=== PATIENT | female | born 2000 | race Caucasian/White ===

== ENCOUNTER 2021-06-13 17:34 | Emergency (ER) | payer OTHER ==
[2021-06-13 18:08] LABS: Urine Blood Negative (Negative); Urine Glucose Negative (Negative); Urine Protein Negative (Negative); Urine Specific Gravity 1.025 (1.005-1.030); Urine pH 6.5 (5.0-7.0)
[2021-06-13 19:35] LABS: Urine Specific Gravity/Preg 1.025 (1.005-1.030)
[2021-06-13] MEDS ORDERED: NA CHLORIDE 0.9% 1,000 ML ONE (19:52)
[2021-06-13 20:06] LABS: ALT/SGPT 22 U/L (12-78); AST/SGOT 12 U/L (15-37); Absolute Lymphocytes (CBC) 2.2 K/uL (0.7-4.9); Alkaline Phosphatase 69 U/L (45-117); BUN Blood Urea Nitrogen 8 mg/dL (7-18); Basophils % 0.2 % (0-1.3); Bicarbonate 26 mmol/L (21-32); Bilirubin Direct 0.1 mg/dL (0-0.2); Bilirubin Total 0.4 mg/dL (0.2-1.0); Glucose Level 81 mg/dL (74-106); Lipase 163 U/L (73-393); Lymphocytes % 29.8 % (15.3-44.8); MPV 9.4 fL (7.6-11.3); Potassium 3.6 mmol/L (3.5-5.1); Protein, Total 7.5 g/dL (6.4-8.2); RBC Red Blood Cell Count 5.13 M/uL (3.86-4.86); Sodium Level 140 mmol/L (136-145)
--- NOTE | 2021-06-13 20:42 | RAD REPORT ---
EXAM DESCRIPTION: US - OB Limited - 06/13/2021 8:30 pm CLINICAL HISTORY: with abdominal pain COMPARISON: None FINDINGS: Limited examination was performed to assess for viability, placenta and amniotic flu id Single live intrauterine in cephalic presentation. Placenta posterior fundal. No subchorionic/retroplacental bleed. Cardiac activity 164 beats per minute. Amniotic fluid within normal limits. Cervix 5 centimeters. The right and left adnexum unremarkable. Right ovary normal in size and echotexture. Left ovary not seen secondary to overlying bowel gas IMPRESSION: Single live intrauterine in cephalic presentation. Normal amniotic fluid. Based on the femur length the estimated gestational age 16 weeks 5 days KARELY 11/23/2021. If a freeman rvey is desired it should be performed in approximately 1-1/2 weeks
--- NOTE | 2021-06-13 20:43 | RAD REPORT ---
EXAM DESCRIPTION: US - Abdomen Exam Complete - 06/13/2021 8:30 pm CLINICAL HISTORY: Abdominal pain COMPARISON: none FINDINGS: The liver has a normal echotexture. A gallstone is not seen. The gallbladder wall is not thickened. The biliary tree is normal caliber. The pancreas is normal in size and echotexture The right kidney measures 11 centimeters with a normal echotexture. The left kidney measures 10 centimeters with a normal echotexture. The spleen measures 12.8 centimeters. Limited evaluation the distal abdominal aorta secondary to overlying bowel gas. Otherwise, The abdominal aorta and inferior vena cava appear unremarkable IMPRESSION: Borderline splenomegaly
--- NOTE | 2021-06-13 21:19 | EDPHYS ---
Physician Documentation [facility] Name: Homer Amin Age: 20 yrs Sex: Female : 2000 Arrival Date: 06/13/2021 Time: 17:36 Bed 11 Private MD: ED Physician Emerson Jacobson HPI: 06/13 20:21 This 20 yrs old Female presents to ER via Ambulatory with complaints of Abdominal Pain pkl - 17 wks preg. 20:21 The patient presents with abdominal pain right lower quadrant, in the left lower pkl quadrant. Onset: The symptoms/episode began/occurred 4 day(s) ago. The symptoms do not radiate. Associated signs and symptoms: Pertinent positives: nausea, dizziness. I&C TECH: 17:54 LMP 12/02/2020 vg1 Historical: - Allergies: 17:54 No Known Allergies; vg1 - Home Meds: 17:54 Vitamin Oral [Active]; vg1 - PMHx: 17:54 None; vg1 - PSHx: 17:54 section; vg1 - Immunization history:: Client reports having NOT received the Covid vaccine. - Social history:: Smoking status: Patient denies any tobacco usage or history of. ROS: 20:21 Eyes: Negative for injury, pain, redness, and discharge, ENT: Negative for injury, pkl pain, and discharge, Neck: Negative for injury, pain, and swelling, Cardiovascular: Negative for chest pain, palpitations, and edema, Respiratory: Negative for shortness of breath, cough, wheezing, and pleuritic chest pain. 20:21 Abdomen/GI: Positive for abdominal pain, nausea, of the right lower quadrant and left lower quadrant. 20:21 Back: Negative for acute changes. 20:21 : Negative for urinary symptoms. 20:21 MS/extremity: Negative for acute changes. 20:21 Skin: Negative for rash. 20:21 Neuro: Negative for altered mental status, loss of consciousness. Exam: 20:21 Head/Face: Normocephalic, atraumatic. Eyes: Pupils equal round and reactive to light, pkl extra-ocular motions intact. Lids and lashes normal. Conjunctiva and sclera are non-icteric and not injected. Cornea within normal limits. Periorbital areas with no swelling, redness, or edema. ENT: Nares patent. No nasal discharge, no septal abnormalities noted. Tympanic membranes are normal and external auditory canals are clear. Oropharynx with no redness, swelling, or masses, exudates, or evidence of obstruction, uvula midline. Mucous membranes moist. Neck: Trachea midline, no thyromegaly or masses palpated, and no cervical lymphadenopathy. Supple, full range of motion without nuchal rigidity, or vertebral point tenderness. No Meningismus. Chest/axilla: Normal chest wall appearance and motion. Nontender with no deformity. No lesions are appreciated. Cardiovascular: Regular rate and rhythm with a normal S1 and S2. No gallops, murmurs, or rubs. Normal PMI, no JVD. No pulse deficits. Respiratory: Lungs have equal breath sounds bilaterally, clear to auscultation and percussion. No rales, rhonchi or wheezes noted. No increased work of breathing, no retractions or nasal flaring. 20:21 Abdomen/GI: Bowel sounds: normal, Palpation: soft, mild abdominal tenderness, in the right lower quadrant and left lower quadrant. 20:21 Back: Exam negative for acute changes. 20:21 : Exam negative for acute changes. 20:21 Musculoskeletal/extremity: Exam is negative for acute changes. 20:21 Skin: Exam negative for rash. 20:21 Neuro: Orientation: is normal, Mentation: is normal, Cranial nerves: grossly normal, Motor: is normal. Vital Signs: 17:52 BP 113 / 84; Pulse 84; Resp 16; Temp 97.6; Pulse Ox 100% ; Weight 90.72 kg; Height 5 vg1 ft. 2 in. (157.48 cm); Pain 4/10; 21:16 BP 118 / 76; Pulse 81; Resp 18; Pulse Ox 100% ; ld1 17:52 Body Mass Index 36.58 (90.72 kg, 157.48 cm) vg1 MDM: 19:19 Patient medically screened. pkl 21:15 Data reviewed: vital signs, nurses notes, lab test result(s), radiologic studies, pkl ultrasound. ED course: Patient feeling better. Discussed lab and US results with patient. Advised to follow up with her I&C TECH in 1 to 2 days. Patient understood instructions. 06/13 18:08 Order name: Urine Dipstick-Ancillary; Complete Time: 19:27 EDMS 06/13 18:10 Order name: Urine --Ancillary (enter results); Complete Time: 20:29 bd 06/13 19:27 Order name: Basic Metabolic Panel; Complete Time: 20:29 pkl 06/13 19:27 Order name: CBC with Diff; Complete Time: 20:29 pkl 06/13 19:27 Order name: Hepatic Function; Complete Time: 20:29 pkl 06/13 19:27 Order name: Lipase; Complete Time: 20:29 pkl 06/13 19:27 Order name: IV Saline Lock; Complete Time: 20:07 pkl 06/13 19:27 Order name: Labs collected and sent; Complete Time: 20:07 pkl 06/13 19:30 Order name: US Abdomen Complete; Complete Time: 20:50 pkl 06/13 19:41 Order name: OB Limited; Complete Time: 20:50 EDMS 06/13 20:52 Order name: Heart Tones; Complete Time: 21:14 pkl Administered Medications: 20:15 Drug: NS 0.9% 1000 ml Route: IV; Rate: 125 ml/hr; Site: right antecubital; mr2 Disposition Summary: 06/13/21 21:19 Discharge Ordered Location: Home pkl Problem: new pkl Symptoms: have improved pkl Condition: Stable pkl Diagnosis - Abdominal pain. 2 nd Trimester pkl Followup: pkl - With: Private Physician - When: 1 - 2 days - Reason: Re-evaluation by your physician Forms: - Medication Reconciliation Form pkl - Thank You Letter pkl - Antibiotic Education pkl - Prescription Opioid Use pkl Signatures: Dispatcher [employer] EDEmerson Saenz MD MD pkl Jamia David RN RN vg1 Mick Singh RN RN mr2 Corrections: (The following items were deleted from the chart) 19:28 19:27 Urine Dipstick-Ancillary ordered. pkl pkl 19:41 19:30 Pelvis Complete+US.RAD.BRZ ordered. EDMS EDMS
--- NOTE | 2021-06-13 21:19 | ER ---
Nurse's Notes [facility] Name: Homer Amin Age: 20 yrs Sex: Female : 2000 Arrival Date: 06/13/2021 Time: 17:36 Bed 11 Private MD: Diagnosis: Abdominal pain. 2 nd Trimester Presentation: 06/13 17:52 Chief complaint: Patient states: RLQ sharp pain x4 days, states nausea and dizziness, vg1 pt is approximately 17 weeks . Pt states tenderness at site. Coronavirus screen: Vaccine status: Patient reports being unvaccinated. Ebola Screen: Patient negative for fever greater than or equal to 101.5 degrees Fahrenheit, and additional compatible Ebola Virus Disease symptoms. Initial Sepsis Screen: Does the patient meet any 2 criteria? No. Patient's initial sepsis screen is negative. Does the patient have a suspected source of infection? No. Patient's initial sepsis screen is negative. Risk Assessment: Do you want to hurt yourself or someone else? Patient reports no desire to harm self or others. Onset of symptoms was June 09, 2021. 17:52 Method Of Arrival: Ambulatory vg1 17:52 Acuity: LBACK 3 vg1 Triage Assessment: 17:54 General: Appears in no apparent distress. comfortable, Behavior is calm, cooperative. vg1 Pain: Complains of pain in right lower quadrant Pain currently is 4 out of 10 on a pain scale. GI: Abdomen is round Last BM was June 13, 2021. : Denies burning with urination, vaginal bleeding. MANAGER MACHINE: 17:54 LMP 12/02/2020 vg1 Historical: - Allergies: 17:54 No Known Allergies; vg1 - Home Meds: 17:54 Vitamin Oral [Active]; vg1 - PMHx: 17:54 None; vg1 - PSHx: 17:54 section; vg1 - Immunization history:: Client reports having NOT received the Covid vaccine. - Social history:: Smoking status: Patient denies any tobacco usage or history of. Vital Signs: 17:52 BP 113 / 84; Pulse 84; Resp 16; Temp 97.6; Pulse Ox 100% ; Weight 90.72 kg; Height 5 vg1 ft. 2 in. (157.48 cm); Pain 4/10; 21:16 BP 118 / 76; Pulse 81; Resp 18; Pulse Ox 100% ; ld1 17:52 Body Mass Index 36.58 (90.72 kg, 157.48 cm) vg1 ED Course: 17:36 Patient arrived in ED. am2 17:54 Triage completed. vg1 17:54 Arm band placed on. vg1 19:13 Gisselle Simmons, RN is Primary Nurse. jh5 19:19 Emerson Jacobson MD is Attending Physician. pkl 20:30 US Abdomen Complete In Process Unspecified. EDMS 20:30 OB Limited In Process Unspecified. EDMS Administered Medications: 20:15 Drug: NS 0.9% 1000 ml Route: IV; Rate: 125 ml/hr; Site: right antecubital; mr2 Outcome: 21:19 Discharge ordered by . pkl 21:47 Patient left the ED. 5 Signatures: Dispatcher [employer] EDMS Emerson Jacobson MD MD pkl Andreina Vidales am2 Jamia David RN RN vg1 Claudia Aguirre RN RN ld1 Mick Singh RN RN mr2 Gisselle Simmons, RN RN [facility]
[2021-06-13 21:52] VITALS: TEMP 97.6; O2SAT 100
[2021-06-13 21:53] VITALS: BP 118/76
== END 2021-06-13 21:47 | disposition home or self-care (01) ==
LOC: ER 17:34
DX: O26.892 Other specified pregnancy related conditions, second trimester (principal); Z3A.17 17 weeks gestation of pregnancy
CPT/HCPCS: 85025; 80048; 36415; 81025; 80076; 81003; 83690; 76700; 76815; 99283; J7030

== ENCOUNTER 2021-08-03 09:26 | Emergency (ER) | payer OTHER ==
[2021-08-03 09:48] LABS: Urine Blood Negative (Negative); Urine Glucose Negative (Negative); Urine Protein Negative (Negative); Urine pH 7.5 (5.0-7.0)
[2021-08-03] MEDS ORDERED: NA CHLORIDE 0.9% 1,000 ML ONE (10:34)
[2021-08-03 10:57] LABS: Absolute Lymphocytes (CBC) 0.4 K/uL (0.7-4.9); Hematocrit 39.8 % (36.0-45.0); Lymphocytes % 8.1 % (15.3-44.8); MPV 8.5 fL (7.6-11.3); RBC Red Blood Cell Count 4.89 M/uL (3.86-4.86)
[2021-08-03 11:41] LABS: BUN Blood Urea Nitrogen 4 mg/dL (7-18); Bicarbonate 20 mmol/L (21-32); Glucose Level 70 mg/dL (74-106); Sodium Level 135 mmol/L (136-145)
[2021-08-03 11:42] LABS: Potassium 3.9 mmol/L (3.5-5.1)
[2021-08-03 12:12] LABS: SARS-COV-2 RT PCR POSITIVE (NEGATIVE)
--- NOTE | 2021-08-03 12:24 | EDPHYS ---
Physician Documentation [facility] Name: Homer Amin Age: 21 yrs Sex: Female : 2000 Arrival Date: 08/03/2021 Time: 09:28 Bed 9 Private MD: ED Physician Pedro Babb HPI: 08/03 10:20 This 21 yrs old Female presents to ER via Ambulatory with complaints of Pain All Over, kb 24 wks preg. 10:20 The patient or guardian reports flu symptoms, myalgias. Onset: The symptoms/episode kb began/occurred yesterday. Severity of symptoms: At their worst the symptoms were moderate, in the emergency department the symptoms are unchanged. Modifying factors: The symptoms are alleviated by nothing, the symptoms are aggravated by nothing. Associated signs and symptoms: The patient has no apparent associated signs or symptoms. The patient has not experienced similar symptoms in the past. The patient has not recently seen a physician. Pt reports bodyaches that started yesterday and congestion that started this morning. Historical: - Allergies: 09:33 No Known Allergies; ll1 - PMHx: 09:33 None; ll1 - PSHx: 09:33 section; ll1 - Immunization history:: Client reports having NOT received the Covid vaccine. - Social history:: Smoking status: Patient denies any tobacco usage or history of. ROS: 10:19 Respiratory: Negative for shortness of breath, cough, wheezing, and pleuritic chest kb pain. 10:19 Constitutional: Positive for body aches, Negative for chills, fatigue, fever, malaise, poor PO intake, weight loss. 10:19 ENT: Positive for sinus congestion. 10:19 All other systems are negative. Exam: 10:19 Constitutional: This is a well developed, well nourished patient who is awake, alert, kb and in no acute distress. Head/Face: Normocephalic, atraumatic. ENT: Moist Mucous membranes Cardiovascular: Regular rate and rhythm with a normal S1 and S2. No gallops, murmurs, or rubs. No pulse deficits. Respiratory: Respirations even and unlabored. No increased work of breathing. Talking in full sentences Skin: Warm, dry with normal turgor. Normal color. MS/ Extremity: Pulses equal, no cyanosis. Neurovascular intact. Full, normal range of motion. Neuro: Awake and alert, GCS 15, oriented to person, place, time, and situation. Moves all extremities. Normal gait. Psych: Awake, alert, with orientation to person, place and time. Behavior, mood, and affect are within normal limits. Vital Signs: 09:34 BP 132 / 77; Pulse 118; Resp 17; Temp 97.6; Pulse Ox 97% ; Weight 100.7 kg; Height 5 ll1 ft. 2 in. (157.48 cm); Pain 8/10; 10:07 Temp 99.5(O); ic1 13:13 BP 128 / 71; Pulse 120; Resp 18; Temp 98.7(O); Pulse Ox 97% on R/A; ic1 09:34 Body Mass Index 40.60 (100.70 kg, 157.48 cm) ll1 MDM: 09:31 Patient medically screened. kb 10:19 Data reviewed: vital signs, nurses notes. Data interpreted: Pulse oximetry: on room air kb is 97 %. Interpretation: normal. 12:23 Counseling: I had a detailed discussion with the patient and/or guardian regarding: the kb historical points, exam findings, and any diagnostic results supporting the discharge/admit diagnosis, lab results, the need for outpatient follow up, a family practitioner, to return to the emergency department if symptoms worsen or persist or if there are any questions or concerns that arise at home. 08/03 09:34 Order name: COVID-19/FLU A+B (Document "Date of Onset" if Symptomatic); Complete Time: kb 12:13 08/03 09:47 Order name: Urine Dipstick-Ancillary; Complete Time: 09:53 EDMS 08/03 09:34 Order name: Urine Dipstick-Ancillary (obtain specimen); Complete Time: 09:46 kb 08/03 10:31 Order name: CBC with Diff; Complete Time: 10:59 kb 08/03 10:31 Order name: Basic Metabolic Panel; Complete Time: 11:57 kb 08/03 09:34 Order name: FHT's; Complete Time: 09:58 kb Administered Medications: 10:43 Drug: NS 0.9% 1000 ml Route: IV; Rate: 1000 ml; Site: right hand; ic1 Disposition Summary: 08/03/21 12:23 Discharge Ordered Location: Home kb Condition: Stable kb Diagnosis - Coronavirus infection, unspecified kb Followup: kb - With: Emergency Department - When: As needed - Reason: Worsening of condition Followup: kb - With: Private Physician - When: 2 - 3 days - Reason: Recheck today's complaints, Continuance of care, Re-evaluation by your physician Discharge Instructions: - Discharge Summary Sheet kb - Viral Respiratory Infection, [id number] kb - COVID-19 kb Forms: - Medication Reconciliation Form kb - Thank You Letter kb - Antibiotic Education kb - Prescription Opioid Use kb Addendum: 08/05/2021 07:07 Co-signature as Attending Physician, ePdro Babb MD I agree with the assessment and c laboy plan of care. Signatures: Dispatcher [employer] EDFelipa Victor, CLAIMS SERVICE ADJUSTOR-C CLAIMS SERVICE ADJUSTOR-Pedro Villanueva MD MD cha Lewis, Lynsay, RN RN ll1 Alma Delia Husain RN RN ic1
--- NOTE | 2021-08-03 12:24 | ER ---
Nurse's Notes [facility] Name: Homer Amin Age: 21 yrs Sex: Female : 2000 Arrival Date: 08/03/2021 Time: 09:28 Bed 9 Private MD: Diagnosis: Coronavirus infection, unspecified Presentation: 08/03 09:34 Chief complaint: Patient states: Pain to back and thighs started yesterday. Awoke today ll1 with congestion and pain all over. 24 weeks . Coronavirus screen: Vaccine status: Patient reports being unvaccinated. Client denies travel out of the [place] in the last 14 days. congestion, fatigue, muscle pain, Client presents with at least one sign or symptom that may indicate coronavirus-19. Standard/surgical mask placed on the client. Ebola Screen: Patient denies travel to an Ebola-affected area in the 21 days before illness onset. Initial Sepsis Screen: Does the patient meet any 2 criteria? HR > 90 bpm. No. Patient's initial sepsis screen is negative. Does the patient have a suspected source of infection? Yes: Productive cough/pneumonia. Risk Assessment: Do you want to hurt yourself or someone else? Patient reports no desire to harm self or others. Onset of symptoms was August 02, 2021. 09:34 Method Of Arrival: Ambulatory ll1 09:34 Acuity: BLACK 4 ll1 Historical: - Allergies: 09:33 No Known Allergies; ll1 - PMHx: 09:33 None; ll1 - PSHx: 09:33 section; ll1 - Immunization history:: Client reports having NOT received the Covid vaccine. - Social history:: Smoking status: Patient denies any tobacco usage or history of. Screenin:33 Abuse screen: Denies threats or abuse. Denies injuries from another. Nutritional ic1 screening: No deficits noted. Tuberculosis screening: No symptoms or risk factors identified. Fall Risk None identified. Exposure risk/Travel Screening: None identified. Assessment: 09:33 Reassessment: Pt amb to treatment room w c/o cornel groin/inner thigh pain since ic1 yesterday. States it began radiating down her legs this AM when she woke up. Pt denies fever, chills. C/o some congestion. 24 weeks iup. Pt denies cp or sob. General: Appears in no apparent distress. comfortable, Behavior is calm, cooperative. Pain: Denies pain. Pain: Complains of pain in right leg and left leg. Neuro: No deficits noted. Cardiovascular: No deficits noted. Respiratory: No deficits noted. GI: No deficits noted. : No deficits noted. EENT: No deficits noted. Derm: No deficits noted. Musculoskeletal: No deficits noted. 09:42 Reassessment: Pt amb to bathroom w steady gait. In NAD. Denies discomfort at this time. ic1 09:58 Reassessment: FHT auscultated using doppler. Resulted at 196bpm Provider notified. ic1 12:01 Reassessment: Pt amb to bathroom w steady gait. Denies distress at this time. Boyfriend ic1 at pt's side. Amb back to room. Fluids placed back onto pt's IV. Tolerating. Denies further needs at this time. Vital Signs: 09:34 BP 132 / 77; Pulse 118; Resp 17; Temp 97.6; Pulse Ox 97% ; Weight 100.7 kg; Height 5 ll1 ft. 2 in. (157.48 cm); Pain 8/10; 10:07 Temp 99.5(O); ic1 13:13 BP 128 / 71; Pulse 120; Resp 18; Temp 98.7(O); Pulse Ox 97% on R/A; ic1 09:34 Body Mass Index 40.60 (100.70 kg, 157.48 cm) ll1 ED Course: 09:28 Patient arrived in ED. am2 09:30 Felipa Franks FNP-C [facility]. kb 09:30 Pedro Babb MD is Attending Physician. kb 09:33 Alma Delia Husain, NIK is Primary Nurse. ic1 09:33 Arm band placed on Patient placed in an exam room, on a stretcher. ll1 09:33 Patient has correct armband on for positive identification. Bed in low position. Call ic1 light in reach. 09:35 Triage completed. ll1 10:23 COVID-19/FLU A+B (Document "Date of Onset" if Symptomatic) Sent. mb7 10:31 Door closed. Noise minimized. Lights dimmed. Warm blanket given. Head of bed lowered. ic1 10:43 Basic Metabolic Panel Sent. ic1 10:43 CBC with Diff Sent. ic1 10:44 Inserted saline lock: 20 gauge in right hand, using aseptic technique. Blood collected. ic1 13:13 IV discontinued, intact, bleeding controlled, No redness/swelling at site. Pressure ic1 dressing applied. Administered Medications: 10:43 Drug: NS 0.9% 1000 ml Route: IV; Rate: 1000 ml; Site: right hand; ic1 Outcome: 12:23 Discharge ordered by MD. polo 13:14 Discharged to home ambulatory, with significant other. ic1 13:14 Condition: stable 13:14 Discharge instructions given to patient, Instructed on discharge instructions, follow up and referral plans. Demonstrated understanding of instructions, follow-up care. 13:15 Patient left the ED. ic1 Signatures: Felipa Franks, CONSTRUCTION OPERATIONS MANAGER-C CONSTRUCTION OPERATIONS MANAGER-Andreina Ferreira am2 Danielle Patton, RN RN ll1 Hope Rich mb7 Alma Delia Husain RN RN ic1
[2021-08-03 13:45] VITALS: O2SAT 97
[2021-08-03 13:47] VITALS: BP 128/71; TEMP 98.7
== END 2021-08-03 13:15 | disposition home or self-care (01) ==
LOC: ER 09:26
DX: O98.512 Other viral diseases complicating pregnancy, second trimester (principal); U07.1 COVID-19; Z3A.24 24 weeks gestation of pregnancy
CPT/HCPCS: 85025; 80048; 36415; 81003; 0240U; 99284; J7030

== ENCOUNTER 2023-12-19 17:59 | Emergency (ER) | payer OTHER ==
[2023-12-19] MEDS ORDERED: ACETAMINOPHEN 500 MG TAB ONE (18:17)
[2023-12-19 18:37] LABS: Specific Gravity 1.019 (1.005-1.030)
[2023-12-19 19:04] LABS: Urine Bacteria <20 /HPF (<20); Urine Bilirubin NEGATIVE (Negative); Urine Blood 3+ (OVER) (Negative); Urine Clarity Extremely Turbid (Clear); Urine Color Light-Yellow (Yellow); Urine Culture Reflex Order REFLEXED; Urine Glucose NEGATIVE (Negative); Urine Ketones NEGATIVE (Negative); Urine Micro Reflex YN NO BILL MICROSCOPIC; Urine Mucus Slight /HPF (None Seen); Urine Nitrite NEGATIVE (Negative); Urine Protein TRACE (Negative); Urine Urobilinogen Normal (Normal)
[2023-12-19] MEDS ORDERED: CYCLOBENZAPRINE 10 MG TAB ONE (19:37)
[2023-12-19] MEDS ORDERED: LIDOCAINE 1% MPF 2 ML AMPULE ONE (19:37)
[2023-12-19] MEDS ORDERED: CEFTRIAXONE 1000 MG/VIAL ONE (19:37)
--- NOTE | 2023-12-19 20:22 | ER ---
Nurse's Notes [facility] Name: Homer Amin Age: 23 yrs Sex: Female : 2000 Arrival Date: 12/19/2023 Time: 17:59 Bed 17 Private MD: Diagnosis: UTI/ Urinary tract infection, site not specified;Nausea Presentation: 12/18 18:06 Chief complaint: Patient states: back pain that started yesterday. the pain is causing as6 nausea. Coronavirus screen: At this time, the client does not indicate any symptoms associated with coronavirus-19. Ebola Screen: No symptoms or risks identified at this time. Initial Sepsis Screen: Does the patient meet any 2 criteria? No. Patient's initial sepsis screen is negative. Does the patient have a suspected source of infection? No. Patient's initial sepsis screen is negative. Risk Assessment: Do you want to hurt yourself or someone else? Patient reports no desire to harm self or others. Onset of symptoms was December 18, 2023. 18:06 Method Of Arrival: Ambulatory as6 18:06 Acuity: BLACK 4 as6 Triage Assessment: 18:08 General: Appears in no apparent distress. Behavior is calm, cooperative. Pain: as6 Complains of pain in back. GI: Reports nausea. 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 - Infectious Disease History:: Denies. - Social history:: Smoking status: Reported history of juuling and/or vaping. Screenin:10 [facility] ED Fall Risk Assessment (Adult) History of falling in the last 3 months, mb9 including since admission No falls in past 3 months (0 pts) Confusion or Disorientation No (0 pts) Intoxicated or Sedated No (0 pts) Impaired Gait No (0 pts) Mobility Assist Device Used No (0 pt) Altered Elimination No (0 pt) Score/Fall Risk Level 0 - 2 = Low Risk Oriented to surroundings, Maintained a safe environment, Educated pt \T\ family on fall prevention, incl call for assistance when getting out of bed. Abuse screen: Denies threats or abuse. Nutritional screening: No deficits noted. Tuberculosis screening: No symptoms or risk factors identified. Assessment: 18:11 General: Appears in no apparent distress. Behavior is calm, cooperative. Pain: mb9 Complains of pain in back. Pain: Quality of pain is described as sharp, shooting, Pain began suddenly, Is intermittent. Neuro: Yan Agitation-Sedation Scale (RASS): 0 - Alert and Calm Level of Consciousness is awake, alert, obeys commands, Oriented to person, place, time, situation, Appropriate for age. Cardiovascular: Patient's skin is warm and dry. Respiratory: Airway is patent Respiratory effort is even, unlabored, Respiratory pattern is regular, symmetrical. GI: Abdomen is round non-distended, Reports nausea. : Denies burning with urination, pain. EENT: No signs and/or symptoms were reported regarding the EENT system. Derm: Skin is pink, warm \T\ dry. Musculoskeletal: Range of motion: intact in all extremities. 20:27 Reassessment: Dispo pending. Patient on shot time. cp4 Vital Signs: 18:06 BP 151 / 109; Pulse 73; Resp 18; Temp 97.4; Pulse Ox 100% ; Weight 92.99 kg; Height 5 as6 ft. 0 in. ; Pain 8/10; 18:28 BP 138 / 93; Pulse 78; Resp 16; Pulse Ox 97% on R/A; mb9 19:57 BP 134 / 81; Pulse 73; Resp 18; Pulse Ox 99% ; cp4 20:43 BP 128 / 86; Pulse 74; Resp 18; Pulse Ox 99% ; cp4 18:06 Body Mass Index 40.04 (92.99 kg, 152.4 cm) as6 18:06 Pain Scale: Adult as6 ED Course: 18:01 Patient arrived in ED. im 18:04 Cheyenne Guy PA-C is PHCP. sb4 18:04 Pedro Babb MD is Attending Physician. sb4 18:07 Triage completed. as6 18:08 Arm band placed on left wrist. as6 18:09 Hope Rich, NIK is Primary Nurse. mb9 18:10 Bed in low position. Call light in reach. Side rails up X 1. Provided Education on: mb9 press call light if needing anything. Client placed on continuous cardiac and pulse oximetry monitoring. NIBP monitoring applied. 18:10 No provider procedures requiring assistance completed. mb9 18:25 Test, Urine Sent. mb9 18:25 UAM Sent. mb9 18:25 Urine collected: clean catch specimen, clear. mb9 19:04 Report given to NIK Gastelum. mb9 20:44 Patient did not have IV access during this emergency room visit. cp4 Administered Medications: 18:25 Drug: Acetaminophen PO 1000 mg PO once Route: PO; mb9 18:56 Follow up: Response: No adverse reaction mb9 20:45 Follow up: Response: No adverse reaction cp4 19:44 Drug: Rocephin (cefTRIAXone) IM 1 grams IM once Route: IM; Site: left ventrogluteal; cp4 20:45 Follow up: Response: No adverse reaction cp4 19:44 Drug: Cyclobenzaprine PO 10 mg PO once Route: PO; cp4 20:44 Follow up: Response: No adverse reaction cp4 20:30 Drug: Promethazine IM 25 mg IM once Route: IM; Site: right ventrogluteal; cp4 20:44 Follow up: Response: No adverse reaction cp4 Medication: 18:10 VIS not applicable for this client. mb9 Outcome: 20:21 Discharge ordered by MD. sb4 20:44 Discharged to home ambulatory, cp4 20:44 Condition: stable 20:44 Discharge instructions given to patient, Instructed on discharge instructions, follow up and referral plans. medication usage, Demonstrated understanding of instructions, follow-up care, medications, Prescriptions given X 2, 20:45 Patient left the ED. cp4 Signatures: Ok Kline RN RN as6 Cheyenne Guy PA-C PA-C sb4 Breneman, Mary Beth, RN RN mb9 Samia Benz Christina cp4 Corrections: (The following items were deleted from the chart) 18:12 18:11 Pain: Quality of pain is described as throbbing, Pain began suddenly, Is mb9 intermittent, mb9
--- NOTE | 2023-12-19 20:22 | EDPHYS ---
Physician Documentation [facility] Name: Homer Amin Age: 23 yrs Sex: Female : 2000 Arrival Date: 12/19/2023 Time: 17:59 Bed 17 Private MD: ED Physician Pedro Babb HPI: 12/18 18:15 This 23 yrs old Female presents to ER via Ambulatory with complaints of Back Pain, sb4 Nausea. 18:15 The patient presents with pain that is acute, with no known mechanism of injury. The sb4 symptoms are located in the left mid back. Onset: The symptoms/episode began/occurred 2 day(s) ago. The pain radiates to the left low back. Associated signs and symptoms: Pertinent positives: nausea, Pertinent negatives: abdominal pain, dysuria, fever, headache, hematuria, numbness, tingling, urinary retention, vomiting. The patient has not experienced similar symptoms in the past. The patient has not recently seen a physician. 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 - Infectious Disease History:: Denies. - Social history:: Smoking status: Reported history of juuling and/or vaping. ROS: 18:15 Constitutional: Negative for fever, chills, and weight loss, sb4 18:15 Abdomen/GI: Positive for nausea, 18:15 Back: Positive for flank pain, on the left, 18:15 All other systems are negative, Exam: 18:15 Constitutional: This is a well developed, well nourished patient who is awake, alert, sb4 and in no acute distress. Head/Face: Normocephalic, atraumatic. Eyes: Extra-ocular motions intact. Periorbital areas with no swelling, redness, or edema. ENT: Mucous membranes moist. Cardiovascular: Regular rate and rhythm with a normal S1 and S2. Respiratory: Lungs have equal breath sounds bilaterally, clear to auscultation and percussion. No rales, rhonchi or wheezes noted. No increased work of breathing, no retractions or nasal flaring. Abdomen/GI: Soft, non-tender, no distension. 18:15 Back: CVA tenderness, is noted on the left, 20:22 Neuro: Exam negative for acute changes, focal neuro deficits, motor deficits, sensory sb4 deficits, cerebellar deficits, altered mental status, confusion, Vital Signs: 18:06 BP 151 / 109; Pulse 73; Resp 18; Temp 97.4; Pulse Ox 100% ; Weight 92.99 kg; Height 5 as6 ft. 0 in. ; Pain 8/10; 18:28 BP 138 / 93; Pulse 78; Resp 16; Pulse Ox 97% on R/A; mb9 19:57 BP 134 / 81; Pulse 73; Resp 18; Pulse Ox 99% ; cp4 20:43 BP 128 / 86; Pulse 74; Resp 18; Pulse Ox 99% ; cp4 18:06 Body Mass Index 40.04 (92.99 kg, 152.4 cm) as6 18:06 Pain Scale: Adult as6 MDM: 18:09 Patient medically screened. [email or web address] 20:21 Data reviewed: vital signs, nurses notes, lab test result(s), and as a result, I will sb4 discharge patient. Counseling: I had a detailed discussion with the patient and/or guardian regarding the historical points, exam findings, and any diagnostic results supporting the discharge/admit diagnosis, lab results, to return to the emergency department if symptoms worsen or persist or if there are any questions or concerns that arise at home. 12/18 18:14 Order name: UAM; Complete Time: 19:12 sb4 12/18 18:14 Order name: Test, Urine; Complete Time: 18:45 sb4 12/18 19:14 Order name: Urine Culture EDMS Administered Medications: 18:25 Drug: Acetaminophen PO 1000 mg PO once Route: PO; mb9 18:56 Follow up: Response: No adverse reaction mb9 20:45 Follow up: Response: No adverse reaction cp4 19:44 Drug: Rocephin (cefTRIAXone) IM 1 grams IM once Route: IM; Site: left ventrogluteal; cp4 20:45 Follow up: Response: No adverse reaction cp4 19:44 Drug: Cyclobenzaprine PO 10 mg PO once Route: PO; cp4 20:44 Follow up: Response: No adverse reaction cp4 20:30 Drug: Promethazine IM 25 mg IM once Route: IM; Site: right ventrogluteal; cp4 20:44 Follow up: Response: No adverse reaction cp4 Disposition Summary: 12/19/23 20:21 Discharge Ordered Notes: Location: Home sb4 Problem: new sb4 Symptoms: have improved sb4 Condition: Stable sb4 Diagnosis - UTI/ Urinary tract infection, site not specified sb4 - Nausea sb4 Followup: sb4 - With: Emergency Department - When: As needed - Reason: Trouble breathing, Worsening of condition Discharge Instructions: - Discharge Summary Sheet sb4 - Urinary Tract Infection, Adult, [id number] sb4 Forms: - Antibiotic Education sb4 - Patient Portal Instructions sb4 - Leadership Thank You Letter sb4 Prescriptions: - Reglan 10 mg Oral tablet - take 1 tablet ORAL route every 6 hours As needed; 20 tablet; Refills: 0, sb4 Product Selection Permitted - Bactrim DS 800-160 mg Oral Tablet - take 1 tablet ORAL route every 12 hours for 10 days; 20 tablet; Refills: 0, sb4 Product Selection Permitted Signatures: Dispatcher [employer] Pedro Pillai MD MD cha Slawson, Ashby, RN RN as6 Cheyenne Guy PAWaltC PAWaltC sb4 Hope Rich RN RN mb9 Oriana Rodriguez cp4
[2023-12-19] MEDS ORDERED: PROMETHAZINE INJ 25 MG/ML AMP ONE (20:23)
[2023-12-19 20:53] VITALS: TEMP 97.4
[2023-12-19 21:13] VITALS: BP 128/86; O2SAT 99
== END 2023-12-19 20:45 | disposition home or self-care (01) ==
LOC: ER 17:59
DX: N39.0 Urinary tract infection, site not specified (principal); R11.0 Nausea
CPT/HCPCS: 87088; 81001; 87086; 81025; 96372; 99284; J2550; J0696; 87077; 87186